=== PATIENT | female | born 1995 | race Caucasian/White ===

== ENCOUNTER → 2016-08-17 | Outpatient (REF) | payer BC ==
[2016-08-17 14:41] LABS: FOLLICLE STIMULATING HORMONE 1.5 mIU/mL; LUTEINIZING HORMONE 4.1 mIU/mL
[2016-08-17 19:24] LABS: CONTROL LINE HCG INT CTR LINE PRESENT
== END ==
LOC: M LAB REF 13:44
PROVIDERS: ATTEND Obstetrics & Gynecology
DX: N83.291 Other ovarian cyst, right side (principal); N91.1 Secondary amenorrhea; R10.2 Pelvic and perineal pain